=== PATIENT | female | born 1955 | race Caucasian/White ===

== ENCOUNTER 2019-09-29 09:42 | Emergency (ER) | payer OTHER ==
[2019-09-29 09:47] VITALS: BP 144/64; PULSE 63; RESP 18; TEMP 98.1
--- NOTE | 2019-09-29 09:57 | ED ---
Upper Extremity HPI - General Chief Complaint: Extremity Injury, Upper Stated Complaint: [facility] -- Fall Time Seen by Provider: 09/29/19 09:48 Source: patient, RN notes reviewed Mode of arrival: ambulatory Limitations: no limitations - History of Present Illness Initial Comments: 64-year-old female presents emergency Department with chief complaint of right hand injury. Patient states last states she slipped on some ice and slid into a vehicle. Patient states her finger was outstretched. She has pain of her fifth digit and on the fifth metacarpal region her hand. She does not that she's had a prior wrist fracture with surgical intervention. She has no complaints of paresthesias at this time he shouldn't denies any proximal forearm wrist pain. - Related Data Allergies Allergy/AdvReac Type Severity Reaction Status Date / Time Penicillins Allergy Unknown Verified 09/29/19 09:47 Review of Systems ROS Statement: Those systems with pertinent positive or pertinent negative responses have been documented in the HPI. ROS Other: All systems not noted in ROS Statement are negative. Past Medical History Past Medical History: No Reported History History of Any Multi-Drug Resistant Organisms: None Reported Past Surgical History: Appendectomy, Hysterectomy, Orthopedic Surgery Past Psychological History: Depression Smoking Status: Current every day smoker Past Alcohol Use History: None Reported Past Drug Use History: None Reported General Exam Limitations: no limitations General appearance: alert, in no apparent distress Head exam: Present: atraumatic, normocephalic, normal inspection Eye exam: Present: normal appearance, PERRL, EOMI. Absent: scleral icterus, conjunctival injection, periorbital swelling ENT exam: Present: normal exam, normal oropharynx, mucous membranes moist Neck exam: Present: full ROM Respiratory exam: Present: normal lung sounds bilaterally. Absent: respiratory distress, wheezes, rales, rhonchi, stridor Cardiovascular Exam: Present: regular rate, normal rhythm, normal heart sounds. Absent: systolic murmur, diastolic murmur, rubs, gallop, clicks Extremities exam: Present: other (Right hand there is swelling over the fifth metacarpal region, fifth digit there is moderate tenderness with palpation, neurovascular intact) Neurological exam: Present: alert, oriented X3 Skin exam: Present: warm, dry, intact, normal color. Absent: rash Course Vital Signs 09/29/19 09:44 Temperature 98.1 F Pulse Rate 63 Respiratory 18 Rate Blood Pressure 144/64 O2 Sat by Pulse 99 Oximetry Medical Decision Making - Medical Decision Making X-rays are negative for acute fracture. Patient is right hand spring. Patient will continue rest ice elevation and Tylenol Motrin as directed. Disposition Clinical Impression: Sprain of right hand Disposition: HOME SELF-CARE Condition: Stable Instructions (If sedation given, give patient instructions): Hand Sprain (ED) Additional Instructions: Please return to the Emergency Department if symptoms worsen or any other concerns. Is patient prescribed a controlled substance at d/c from ED?: No Referrals: Seamus Ibarra MD [Primary Care Provider] - 1-2 days Time of Disposition: 10:41
--- NOTE | 2019-09-29 10:38 | XR ---
EXAMINATION TYPE: XR hand complete RT , 3 VIEWS DATE OF EXAM ORDERED: 09/29/2019 HISTORY: pain, swelling. COMPARISON: Previous study dated 04/13/2015. FINDINGS: There is been previous sideplate and screw fixation of the distal radius. No acute fractur e or dislocation is seen. There is some lacy periosteal new bone adjacent to the distal phalanx of th e thumb. This may also relate to previous trauma. IMPRESSION: 1. NO ACUTE OSSEOUS LESION. 2. EVIDENCE OF OLD TRAUMA.
== END 2019-09-29 10:50 | disposition home or self-care (01) ==
LOC: EC 09:42
DX: S63.91XA Sprain of unspecified part of right wrist and hand, initial encounter (principal); F17.200 Nicotine dependence, unspecified, uncomplicated; Z88.0 Allergy status to penicillin; W00.0XXA Fall on same level due to ice and snow, initial encounter; Y92.69 Other specified industrial and construction area as the place of occurrence of the external cause; Y99.0 Civilian activity done for income or pay
CPT/HCPCS: 99283

== ENCOUNTER → 2024-02-28 | Outpatient (CLI) | payer MEDICARE ==
--- NOTE | 2024-02-28 16:16 | US ---
EXAMINATION TYPE: US venous doppler duplex LE DATE OF EXAM: 02/28/2024 4:07 PM COMPARISON: NONE CLINICAL INDICATION: Female, 68 years old with history of G25.81 RESTLESS LEG SYNDROME; No hx of DVT. Patient does not take blood thinners. Patient has pain in her legs at night. SIDE PERFORMED: Bilateral TECHNIQUE: The lower extremity deep venous system is examined utilizing real time linear array sonog [place] with graded compression, doppler sonography and color-flow sonography. VESSELS IMAGED: Common Femoral Vein Deep Femoral Vein Greater Saphenous Vein * Femoral Vein Popliteal Vein Small Saphenous Vein * Proximal Calf Veins (* superficial vessels) Right Leg: No evidence of DVT. *Complex fluid area seen lateral posterior knee measurin.3 x 2.0 x 1.3 cm. Left Leg: No evidence of DVT. IMPRESSION: No evidence for deep vein thrombosis bilaterally. Right popliteal fossa cyst.
== END | disposition home or self-care (01) ==
LOC: RADUSWWP 15:38
PROVIDERS: ATTEND Family Medicine
DX: G25.81 Restless legs syndrome (principal)
CPT/HCPCS: 93970

== ENCOUNTER 2024-04-15 09:36 | Emergency (ER) | payer MEDICARE ==
[2024-04-15] MEDS ORDERED: methylPREDNISolone SOD SUCCI 125 MG/2 ML VIAL ONE (10:48)
[2024-04-15] MEDS ORDERED: SODIUM CHLORIDE 0.9% 1,000 ML BAG ONE (10:50)
[2024-04-15] MEDS ORDERED: ALBUTEROL NEBULIZED 2.5 MG/3 ML INHALATION ONE (10:57)
[2024-04-15] MEDS ORDERED: IPRATROPIUM 0.5 MG/2.5 ML NEBU INHALATION ONE (10:57)
[2024-04-15] MEDS ORDERED: cefTRIAXone 2 GM VIAL ONE (11:00)
[2024-04-15] MEDS ORDERED: SODIUM CHLORIDE 0.9% 50 ML BAG IV ONE (11:00)
--- NOTE | 2024-05-21 08:53 | XR ---
Patient Rashmi Rojo M ID [id number] EXAMINATION TYPE: XR chest 2V DATE OF EXAM: 04/15/2024 11:48 AM CLINICAL INDICATION: Cough COMPARISON: THIS EXAM WAS READ DURING PACS DOWNTIME, NO PRIORS AVAILABLE. TECHNIQUE: XR chest 2V Frontal view of the chest. FINDINGS: Lungs/Pleura: There is no evidence of pleural effusion, focal consolidation, or pneumothorax. Pulmonary vascularity: Unremarkable. Heart/mediastinum: Cardiomediastinal silhouette is unremarkable. Musculoskeletal: No acute osseous pathology. Other findings: None IMPRESSION: No acute cardiopulmonary disease/process.
== END 2024-04-15 12:42 | disposition home or self-care (01) ==
LOC: EC 09:36
CPT/HCPCS: 71046; 94640; 96365; 96375; 99283